=== PATIENT | male | born 1995 | race Caucasian/White ===

== ENCOUNTER 2018-08-13 08:55 | Emergency (ER) | payer BC | END 2018-08-13 09:48 | disposition home or self-care (01) | LOC: FTE 08:55 | DX: B86 Scabies (principal); E11.9 Type 2 diabetes mellitus without complications; I10 Essential (primary) hypertension; Z79.4 Long term (current) use of insulin | CPT/HCPCS: 99283 ==

== ENCOUNTER 2019-05-26 15:34 | Emergency (ER) | payer BC | END 2019-05-26 16:31 | disposition home or self-care (01) | LOC: E/R 15:34 | DX: M54.5 Low back pain (principal); I10 Essential (primary) hypertension; E11.9 Type 2 diabetes mellitus without complications; Z79.4 Long term (current) use of insulin | CPT/HCPCS: 99283 ==